=== PATIENT | female | born 1985 | race Caucasian/White ===

== ENCOUNTER 2019-04-02 11:20 | Emergency (ER) | payer MEDICAID ==
[~2019-04-02] VITALS: Ht 165.1 cm; Wt 120.0 kg
[2019-04-02] MEDS ORDERED: SERT100T32 PO (11:46)
[2019-04-02] MEDS ORDERED: PROAIR (11:46)
--- NOTE | 2019-04-02 11:47 | NUR ---
FIRST CONTACT WITH PT. PT REPORTS, "I WAS AT HOME AND ALL OF THE SUDDEN I FELT LIKE I COULDN'T BREATH. I WENT TO URGENT CARE AND THEN EMS BROUGHT ME HERE. THIS HAS NEVER HAPPENED TO ME BEFORE". , JASIEL, IS AT BEDSIDE AND CONFIRMS THAT THIS HAS NEVER HAPPENED BEFORE. PT WAS HYPERVEN AND REPORTED THAT "MY HANDS AND FEET ARE NUMB".
--- NOTE | 2019-04-02 11:49 | NUR ---
PT RR HAVE DECREASED TO APPROX 14 AND HER OX SATS ARE HOLDING IN THE 90'S. LAB AT BEDSIDE GETTING BLOOD. AND CHILDREN AT BEDSIDE.
[2019-04-02] MEDS ORDERED: LORazepam 2 MG/ML, 1ML ONE (11:53)
[2019-04-02] MEDS ORDERED: LORazepam 2 MG/ML, 1ML IVPush PRN (12:00)
[2019-04-02 12:06] LABS: BASOPHILS # (AUTO) 0.13 x10^3/uL (0-0.1); BASOPHILS % (AUTO) 2 % (0-1); EOSINOPHILS # (AUTO) 0.08 x10^3/uL (0-0.4); EOSINOPHILS % (AUTO) 1 % (1-7); LYMPHOCYTES # (AUTO) 1.83 x10^3/uL (1-3.4); LYMPHOCYTES % (AUTO) 24 % (22-44); MD NO; MEAN CORPUSCULAR HGB CONC 33.5 g/dL (32.4-35.8); MEAN CORPUSCULAR VOLUME 92.5 fL (80-100); MEAN PLATELET VOLUME 7.7 fL (7.4-10.4); MONOCYTES # (AUTO) 0.53 x10^3/uL (0.2-0.8); MONOCYTES % (AUTO) 7 % (2-9); NEUTROPHILS # (AUTO) 5.21 x10^3/uL (1.8-6.8); NEUTROPHILS % (AUTO) 67 % (42-75); PLATELET COUNT 390 x10^3/uL (130-400); RED BLOOD COUNT 4.39 x10^6/uL (3.82-5.3); RED CELL DISTRIBUTION WIDTH 14.1 % (9.6-15.2)
--- NOTE | 2019-04-02 12:09 | NUR ---
PT DENIES PAIN AND STATES "MY HANDS AND FEET ARE NOT NUMB ANYMORE". PT REPORTS "THE ATIVAN MADE ME FEEL SO MUCH BETTER."
[2019-04-02 12:19] LABS: ALBUMIN 3.6 g/dL (3.4-5.0); ANION GAP 9 mmol/L (5-15); CHLORIDE 107 mmol/L (98-107)
--- NOTE | 2019-04-02 12:32 | NUR ---
CHART UP FOR RECHECK
[2019-04-02 13:25] VITALS: BP 127/69
== END 2019-04-02 13:37 | disposition home or self-care (01) ==
LOC: ED 13:31
DX: F41.1 Generalized anxiety disorder (principal); R06.4 Hyperventilation; R06.02 Shortness of breath; R20.2 Paresthesia of skin
CPT/HCPCS: 36415; 71045; 80048; 82040; 84703; 85025; 93005; 96374; 99284; J2060